=== PATIENT | female | born 1995 | race Hispanic/Latino ===

== ENCOUNTER 2017-09-18 18:24 | Emergency (ER) | payer SELFPAY ==
--- NOTE | 2017-09-18 19:45 | ER ---
Nurse's Notes [facility] Name: Alyssa Giles Age: 22 yrs Sex: Female : 1995 Arrival Date: 09/18/2017 Time: 18:25 Bed Waiting Private MD: Jacinto Calix Diagnosis: Presentation: 09/18 18:39 Presenting complaint: Patient states: Mid back pain 10/10 after mechanical fall onto hb back 3 hrs [employer]. Pain is worse with inspiration. Denies LOC. Ambulated to triage with steady gait. Transition of care: patient was not received from another setting of care. Onset of symptoms was September 18, 2017. Care prior to arrival: Medication(s) given: Naproxen at 1800. 18:39 Method Of Arrival: Ambulatory hb 18:39 Acuity: NAAHI 4 hb 19:35 Note Registration states pt told them she no longer wished to be seen and she was aa1 leaving at this time. Triage Assessment: 18:44 General: Appears in no apparent distress. uncomfortable, Behavior is calm, cooperative. hb Pain: Pain currently is 10 out of 10 on a pain scale. Neuro: Level of Consciousness is awake, alert, obeys commands, Oriented to person, place, time, situation. Cardiovascular: Capillary refill < 3 seconds Patient's skin is warm and dry. Respiratory: Airway is patent Respiratory effort is even, unlabored, Respiratory pattern is regular, symmetrical. Musculoskeletal: Circulation, motion, and sensation intact. 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 - Social history:: Smoking status: Patient/guardian denies using tobacco. Vital Signs: 18:42 BP 125 / 68; Pulse 82; Resp 16; Temp 97.4; Pulse Ox 100% on R/A; Weight 83.46 kg; hb Height 5 ft. 6 in. (167.64 cm); Pain 10/10; 18:42 Body Mass Index 29.70 (83.46 kg, 167.64 cm) hb ED Course: 18:25 Patient arrived in ED. as 18:25 Jacinto Calix MD is Private Physician. as 18:41 Triage completed. hb 18:42 Arm band placed on left wrist. hb Administered Medications: No medications were administered Outcome: 19:44 Patient left the ED. aa1 Signatures: Sharon Hannah RN RN aa1 Maggy Charles Heather, RN RN hb Corrections: (The following items were deleted from the chart) 18:39 Presenting complaint: Patient states: Mid back pain 10/ after mechanical fall hb onto back 3 hrs [employer]. Pain is worse with inspiration. Denies LOC. hb 1844 18:39 Care prior to arrival: Medication(s) given: Naproxen at 1800 hb hb
[2017-09-18 19:58] VITALS: BP 125/68; TEMP 97.4; O2SAT 100
== END 2017-09-18 19:44 | disposition left against medical advice (07) ==
LOC: ER 18:24
DX: Z53.21 Procedure and treatment not carried out due to patient leaving prior to being seen by health care provider (principal)
CPT/HCPCS: 99281